=== PATIENT | male | born 1955 | race Caucasian/White ===

== ENCOUNTER 2023-09-23 07:21 | Day surgery (SDC) | payer MEDICARE ==
[2023-09-23] MEDS ORDERED: BUPIVACAINE 0.5% VIAL IJ ONE (07:22)
[2023-09-23] MEDS ORDERED: Depo-Medrol 40 MG/ML IM ONE (07:22)
[2023-09-23] MEDS ORDERED: LIDOCAINE HCL 1% 50 MG/5 ML VL PF IJ ONE (07:22)
[2023-09-23] MEDS ORDERED: Lactated Ringers 1,000 ML IV ONE (08:29)
[2023-09-23] MEDS ORDERED: DIPRIVAN 200 MG/20 ML IV ONE (08:50)
--- NOTE | 2023-09-23 10:24 | XRAY ---
Indication: Bilateral hip injection. Intraoperative fluoroscopy provided for 39 seconds. 2 digital spot images submitted for interpretation demonstrates needle tips projecting lateral to the left and right femur necks. Small amount of contrast injected for both needle tip placement. Correlate with intraoperative findings/report.
--- NOTE | 2023-09-23 10:35 | XRAY ---
39 seconds of fluoroscopy was used in surgery for a bilateral intra-articular hip injection.
== END 2023-09-23 09:19 | disposition home or self-care (01) ==
LOC: SDC-PAIN 07:21
PROVIDERS: ATTEND Psychiatry & Neurology Pain Medicine
DX: M16.0 Bilateral primary osteoarthritis of hip (principal); M79.18 Myalgia, other site; E11.9 Type 2 diabetes mellitus without complications
CPT/HCPCS: 20553; 20610; 73521; 77002; 82947; J2001; J2704; Q9966

== ENCOUNTER 2024-05-19 07:16 | Day surgery (SDC) | payer MEDICARE, BC ==
[2024-05-19] MEDS ORDERED: Sodium Chloride 0.9(Preservative Free) 10 ML IJ ONE (07:17)
[2024-05-19] MEDS ORDERED: dexAMETHasone sodium phosphate IJ ONE (07:17)
[2024-05-19] MEDS ORDERED: Versed 2 MG/2 ML Injection ONE (09:08)
[2024-05-19] MEDS ORDERED: propofoL IV ONE (10:11)
--- NOTE | 2024-05-19 11:07 | XRAY ---
Indication: Right L4-S1 transforaminal ALVARADO. Intraoperative fluoroscopy provided for 47 seconds. 4 digital spot image submitted for interpretation demonstrates posterior needle tips projecting over expected right L4 and L5 nerve roots. Small amount of contrast injected for needle tip placement. Correlate with intraoperative findings/report. Incidental biiliac stents.
--- NOTE | 2024-05-19 11:09 | XRAY ---
47 seconds of fluoroscopy was used in surgery for a right L4-S1 transforaminal ALVARADO.
== END 2024-05-19 10:55 | disposition home or self-care (01) ==
LOC: SDC-PAIN 07:16
PROVIDERS: ATTEND Psychiatry & Neurology Pain Medicine
DX: M54.16 Radiculopathy, lumbar region (principal); E11.9 Type 2 diabetes mellitus without complications
CPT/HCPCS: 64483; 64484; 72100; 77003; 82947; J1100; J2250; J2704; Q9966

== ENCOUNTER 2024-06-30 09:03 | Day surgery (SDC) | payer MEDICARE, BC ==
[2024-06-30] MEDS ORDERED: BUPIVACAINE 0.5% VIAL IJ ONE (09:04)
[2024-06-30] MEDS ORDERED: Depo-Medrol 40 MG/ML IM ONE (09:04)
[2024-06-30] MEDS ORDERED: propofoL IV ONE (11:04)
--- NOTE | 2024-06-30 13:03 | XRAY ---
Indication: Right hip injection. Intraoperative fluoroscopy provided for 11 seconds. Single digital spot image submitted for interpretation demonstrates needle tip projecting lateral to right femur neck. Small amount of contrast injected for needle tip placement. Correlate with intraoperative findings/report.
--- NOTE | 2024-06-30 13:07 | XRAY ---
11 seconds of fluoroscopy were used in surgery for a right intra-articular hip.
[2024-06-30] MEDS ORDERED: Lactated Ringers 1,000 ML IV ONE (13:11)
== END 2024-06-30 11:40 | disposition home or self-care (01) ==
LOC: SDC-PAIN 09:03
PROVIDERS: ATTEND Psychiatry & Neurology Pain Medicine
DX: M16.11 Unilateral primary osteoarthritis, right hip (principal); E11.9 Type 2 diabetes mellitus without complications
CPT/HCPCS: 20610; 73501; 77002; 82947; J2704; Q9966